=== PATIENT | male | born 1955 | race Caucasian/White ===

== ENCOUNTER 2017-01-16 17:48 | Emergency (ER) | payer OTHER ==
[~2017-01-16] VITALS: Ht 167.6 cm; Wt 104.0 kg
[2017-01-16 17:52] VITALS: Ht 167.6 cm; Wt 104.0 kg
[2017-01-16] MEDS ORDERED: KETOROLAC 60 MG INJ IM STA (18:30)
[2017-01-16] MEDS ORDERED: HYDROCODONE/APAP (5/325) TAB PO ONE (18:30)
[2017-01-16 19:18] LABS: URINE BLOOD (Dip) POC Trace-intact (NEGATIVE)
[2017-01-16] MEDS ORDERED: IBUP-1542 PO (19:43)
[2017-01-16] MEDS ORDERED: HYDR-906 PO (19:43)
--- NOTE | 2017-01-16 19:46 | ERD ---
ER Documentation Chief Complaint Date/Time DATE: 01/16/17 TIME: 19:45 Chief Complaint pt bib family with c/o left flank pain x 2 days HPI This 7-year-old male complains of left-sided low back pain for last 2 days. He denies any lifting, fall or inciting events. Denies bowel bladder incontinence , urinary complaint., Fevers, cough, shortness breath or chest pain. Denies any significant history of low back pain. ROS All systems reviewed and are negative except as per history of present illness. Medications Home Meds Active Scripts Hydrocodone/Acetaminophen ([place] 5-325 Tablet) 1 Each Tablet, 1 TAB PO Q6H Y for PAIN, #15 TAB Prov:GADIEL SALINAS MD 01/16/17 Ibuprofen* (Motrin*) 600 Mg Tab, 600 MG PO Q6, #20 TAB Prov:GADIEL SALINAS MD 01/16/17 Allergies Allergies: Coded Allergies: No Known Allergy (Unverified , 01/16/17) PMhx/Soc History of Surgery: No Anesthesia Reaction: No Hx Neurological Disorder: No Hx Respiratory Disorders: No Hx Cardiac Disorders: No Hx Psychiatric Problems: No Hx Miscellaneous Medical Probl: No Hx Alcohol Use: Yes Hx Substance Use: No Hx Tobacco Use: No Smoking Status: Never smoker Physical Exam Vitals Vital Signs Date Time Temp Pulse Resp B/P Pulse Ox O2 Delivery O2 Flow Rate FiO2 01/16/17 17:52 98.3 78 16 125/94 98 Physical Exam Const: [] Alert, [id number] Head: Atraumatic Eyes: Normal Conjunctiva ENT: Normal External Ears, Nose and Mouth. Neck: Full range of motion..~ No meningismus. Resp: Clear to auscultation bilaterally Cardio: Regular rate and rhythm, no murmurs Abd: Soft, non tender, non distended. Normal bowel sounds Skin: No petechiae or rashes Back: No midline or flank tenderness. Some tenderness to left L4-5 paraspinous area left buttock. Is no midline tenderness or deformities. Ext: No cyanosis, or edema Neur: Awake and alert. Normal gait. No appreciable focal neurologic deficits. Psych: Normal Mood and Affect Results 24 hrs Laboratory Tests Test 01/16/17 19:21 Bedside Urine pH (LAB) 5.5 Bedside Urine Protein (LAB) Negative Bedside Urine Glucose (UA) Negative Bedside Urine Ketones (LAB) Negative Bedside Urine Blood Trace-intact Bedside Urine Nitrite (LAB) Negative Bedside Urine Leukocyte Esterase (L Negative Current Medications Medications (Trade) Dose Ordered Sig/Alma Delia Route PRN Reason Start Time Stop Time Status Last Admin Dose Admin Ketorolac Tromethamine (Toradol) 60 mg ONCE STAT IM 01/16/17 18:30 01/16/17 18:31 DC 01/16/17 18:42 Acetaminophen/ Hydrocodone Bitart ([place] (5/325)) 1 tab ONCE ONCE PO 01/16/17 18:30 01/16/17 18:31 DC 01/16/17 18:42 Procedures/MDM X-ray LS-Spine 3V Interpreted by me: Bones: No fracture, or lytic lesions Joints: No dislocation Foreign body: None. Impression have normal lumbar spine Urine is negative for leukocytes, hemoglobin. Negative for glucose. Patient was given Toradol 60 mg IM and [place] 5 mg of mouth. Patient presents with a 2 day history of low back pain on the left appears to be musculoskeletal without evidence of cauda equina syndrome, epidural abscess, neurologic deficits , additional emergent causes of presenting complaints. We treated with short course of [place] and ibuprofen instructions for back exercises since instructed to follow-up with primary doctor this week. The patient was stable with no new complaints during the ER course. Clinically, there is no current evidence to suggest meningitis, sepsis, acute abdomen, pneumonia, acute coronary syndrome, pulmonary embolism, or any other emergent condition appearing to require further evaluation or hospitalization. The patient should certainly return for any new or worsening symptoms per the aftercare instructions. They should otherwise follow-up with her primary care doctor for reevaluation this week. Departure Diagnosis: Primary Impression: Back pain Back pain location: low back pain Chronicity: acute Back pain laterality: left Sciatica presence: with sciatica Sciatica laterality: sciatica of left side Qualified Code: M54.42 - Acute left-sided low back pain with left-sided sciatica Condition: Stable Patient Instructions: Back Exercises, Lumbar, Back Pain W/ Sciatica Additional Instructions: X-ray and urine normal. Recheck with primary doctor for further evaluation and treatment, or return for new or worsening symptoms. GADIEL SALINAS MD January 16, 2017 19:46
[2017-01-16 20:00] VITALS: BP 132/88; PULSE 80; RESP 16; TEMP 98.3
--- NOTE | 2017-01-16 20:38 | RADRPT ---
PROCEDURE: X-ray lumbar spine CLINICAL INDICATION: Back pain TECHNIQUE: 2 views lumbar spine COMPARISON: None FINDINGS: Mild anterior wedging at the T11, T12 and L1 levels, otherwise age indeterminate nonspecific. Bulky anterior plate osteophytes seen in the partially visualized lower thoracic spine. Small anterior e ndplate osteophytes in the lower lumbar spine. Posterior facet degenerative changes at the L3-S1 levels. Transitional vertebral anatomy at S1 lumb arization of the vertebral body. No acute fracture. Soft tissues unremarkable. IMPRESSION: Degenerative changes, without acute fracture. RPTAT: [facility] Physician Julius Date Time Electronically viewed and signed by Physician Julius on 01/16/2017 20:37 RS/
== END 2017-01-16 20:00 | disposition home or self-care (01) ==
LOC: FTE 17:48
DX: M54.42 Lumbago with sciatica, left side (principal)
CPT/HCPCS: 72100; 81003; 96372; J1885; Z7502; Z7610